=== PATIENT | female | born 1955 | race Caucasian/White ===

== ENCOUNTER 2016-12-07 02:39 | Emergency (ER) | payer OTHER ==
[2016-12-07] MEDS ORDERED: Lidocaine 1% 20 ML MDV INJECT ONE (02:45)
[2016-12-07] MEDS ORDERED: Thiamine 100 MG Tab PO ONE (02:49)
[2016-12-07] MEDS ORDERED: Folic Acid 1 MG Tab PO ONE (02:49)
[2016-12-07] MEDS ORDERED: Multivitamin Tab PO STA (02:49)
[2016-12-07] MEDS ORDERED: Multivitamin Tab PO ONE (03:20)
--- NOTE | 2016-12-07 03:22 | EDM.PDOC ---
[id number] LACERATION Time Seen by Provider: 12/07/16 02:51 Source: Reports: Patient, EMS, Family History Limitations: Reports: Intoxication - History of Present Illness INITIAL COMMENTS - FREE TEXT/NARRATIVE: 61 years old w regan came to the ed by ems with her SO after [place] and [place] a drawer hitting her head. No LOC. Pt drinks daily. Pt is UTD with her TD immunization. No active bleed. No other acute medical issues at this time. Her gave the HPI. Symptom Onset Date: 12/07/16 Symptom Onset Time: 00:05 Timing: Reports: still present Location, Skin: Reports: face Quality: Reports: Ache, Sharp Severity: mild Known Identified Source: yes (fall to head) Place: other (casino) Sick Contact: no Associated symptoms: Reports: denies other symptoms Similar Symptoms Previously: no Recent Medical Care: no - Related Data Allergies Allergy/AdvReac Type Severity Reaction Status Date / Time No Known Allergies Allergy Verified 12/07/16 02:47 Home Meds: Ambulatory Orders Medication Instructions Recorded Confirmed . [Unable to Verify Home Med List] 12/07/16 12/07/16 Past Medical History Cardiovascular History: Reports: High cholesterol Social & Family History - Tobacco Use Smoking Status *Q: Former Smoker - Caffeine Use Caffeine Use: Reports: Coffee - Recreational Drug Use Recreational Drug Use: No ED ROS GENERAL - Review of Systems Review Of Systems: Unable To Obtain Constitutional: Reports: ROS unobtainable (due to ETOH intoxication) ED EXAM, SKIN/RASH Exam: See Below Exam Limited By: Intoxication General Appearance: alert, WD/WN, mild distress Eye Exam: bilateral eye: normal inspection Ears: normal external exam, normal canal Nose: normal inspection, normal mucosa, no blood Throat/Mouth: Normal inspection, Normal lips, Normal teeth, Normal gums, Normal oropharynx, Normal voice, No airway compromise Head: other (Tuan laceration) Neck: normal inspection, supple, non-tender, full range of motion Respiratory/Chest: no respiratory distress, lungs clear, normal breath sounds, no accessory muscle use, chest non-tender Cardiovascular: normal peripheral pulses, regular rate, rhythm, no edema, no gallop, no JVD Peripheral Pulses: 2+: femoral (L), femoral (R) GI/Abdominal: normal bowel sounds, soft, non tender, no organomegaly, no distention, no abnormal bruit, no mass (Female) Exam: Deferred Rectal (Female) Exam: Deferred Back Exam: normal inspection, full range of motion Extremities: normal inspection, normal range of motion, non-tender, no pedal edema, normal capillary refill Neurological: alert, oriented, CN II-XII intact, normal gait, no motor/sensory deficits Psychiatric: normal affect, normal mood Skin: Warm, Dry, Wound/incision (Tuan LAC) Location, Skin: head Characteristics: linear Lymphatic: no adenopathy ED SKIN PROCEDURES - Laceration/Wound Repair Anterior Head Lac/wound length in cm: 8 Appearance: subcutaneous, linear, clean Distal NVT: neuro & vascular intact, no tendon injury Anesthetic type: local Local anesthesia - Lidocaine (Xylocaine): 1% plain Local anesthetic volume: 5cc Saline irrigation (cc's): 10 Exploration/Debridement/Repair: wound explored, in a bloodless field, explored to base Suture size: 4-0 # of sutures: 5 (18 stables ) Repaired with: other (ethilon) Drain placement: No Sterile dressing applied: nurse Tetanus status addressed: Yes Complications: Yes Course - Vital Signs Text/Narrative:: 61 years old w f came to the ed by ems with her SO after she was [place] and [place] drawer hitting her head. No LOC. Pt drinks daily. Pt is UTD with her TD immunization. No active bleed. No other acute medical issues at this time. Her gave the HPI. PE: intoxicated 61 y.o.w.f with a head LAC Procedure: Please see note above Wound care: See nursing note Impression: Head LAC, ETOH abuse plan: D/C with instruction Last Recorded V/S: Last Vital Signs Temp 36.4 C 12/07/16 02:51 Pulse 77 12/07/16 03:35 Resp 20 12/07/16 03:35 BP 125/85 12/07/16 03:35 Pulse Ox 98 12/07/16 03:35 - Orders/Labs/Meds Meds: Medications Discontinued Medications Generic Name Dose Route Start Last Admin Trade Name Freq PRN Reason Stop Dose Admin Folic Acid 1 mg 12/07/16 02:49 12/07/16 03:22 Folic Acid PO 12/07/16 02:50 1 mg ONETIME ONE Administration Lidocaine HCl 5 ml 12/07/16 02:45 Xylocaine 1% INJECT 12/07/16 02:46 .STK-MED ONE Multivitamins/Minerals/Vitamin C 1 tab 12/07/16 02:49 12/07/16 03:28 Tab-A-Gail PO 12/07/16 02:50 Not Given ONETIME STA Multivitamins/Minerals/Vitamin C 1 tab 12/07/16 03:20 12/07/16 03:34 Tab-A-Gail PO 12/07/16 03:21 1 tab ONETIME ONE Administration Thiamine HCl 100 mg 12/07/16 02:49 12/07/16 03:21 Vitamin B-1 PO 12/07/16 02:50 100 mg ONETIME ONE Administration Departure - Departure Time of Disposition: 03:19 Disposition: Home, Self-Care 01 Condition: good Clinical Impression: ETOH abuse Laceration of head Qualifiers: Encounter type: initial encounter Location of open wound of head: scalp Foreign body presence: without foreign body Qualified Code(s): S01.01XA - Laceration without foreign body of scalp, initial encounter Instructions: Facial Laceration, [id number] Referrals: PCP,Unknown [Primary Care Provider] - Forms: ED Department Discharge Additional Instructions: Please apply neosporine ointment to wound twice daily, wound check in 2 days, sutures/stables removal in 10-14 days. Please take Thiamine, MVIand Folic acid tables daily, pleae refrain from ETOH use. Please come back to the ed if your symptoms get worse acutely.
[2016-12-07 03:39] VITALS: BP 125/85
== END 2016-12-07 03:35 | disposition home or self-care (01) ==
LOC: FB.ED 02:39
PROC: 0HQ0XZZ Repair Scalp Skin, External Approach (ICD-10-PCS; principal; 2016-12-07)
DX: S01.01XA Laceration without foreign body of scalp, initial encounter (principal); F10.120 Alcohol abuse with intoxication, uncomplicated; W19.XXXA Unspecified fall, initial encounter; Y92.59 Other trade areas as the place of occurrence of the external cause; E78.00 Pure hypercholesterolemia, unspecified; Z87.891 Personal history of nicotine dependence
CPT/HCPCS: 12004; 99284; A4217; A9270; 12013; 12015